=== PATIENT | male | born 1990 ===

== ENCOUNTER 2017-12-05 01:17 | Emergency (ER) | payer SELFPAY ==
[2017-12-05 03:12] VITALS: BP 129/80
[2017-12-05] MEDS ORDERED: NORCO 5/325 PO ONE (06:43)
[2017-12-05] MEDS ORDERED: NORCO 5/325 ONE (06:46)
--- NOTE | 2017-12-05 08:00 | Emergency Department Report ---
ED ENT HPI - General Chief complaint: Dental/Oral Stated complaint: TOOTHACHE Time Seen by Provider: 12/05/17 07:31 Source: patient, family Mode of arrival: Ambulatory Limitations: No Limitations - History of Present Illness Initial comments: This is a 27-year-old male patient here today complaining of toothache upper and lower left tooth. He suggested going on for 2-3 days. Denies any fever or chills. Denies any neck pain or stiffness. Denies any drooling, sore throats, headache, shortness of breath or chest pain. He said he took ibuprofen but it didn't help. Pain is 10 out of 10 achy and worse with eating no alleviating factors. He's had several incident of toothache and said that he doesn't have access to dentists and he does not have any dentists. MD complaint: tooth pain Onset/Timin -: days(s) Location: tooth # (10,19) 1 - Tooth #10 with fracture and decay 2 - Tooth #19 with fracture and decay and dental tenderness. Mild gingivitiscellulitis noticed. Severity: severe Severity scale (0 -10): 10 Quality: aching Consistency: constant Improves with: none Worsens with: eating Context- Dental: history of dental caries, poor dental care Associated Symptoms: toothache. denies: fever, cough, gum swelling, pain with swallowing, sore throat, tinnitus, hearing loss, discharge from ear, rhinorrhea - Related Data Previous Rx's Medication Instructions Recorded Last Taken Type Acetaminophen/Codeine [Tylenol 1 tab PO Q6H PRN #12 tab 12/05/17 Unknown Rx /Codeine # 3 tab] Ibuprofen [Motrin] 800 mg PO Q8HR PRN #15 tablet 12/05/17 Unknown Rx Penicillin V Potassium 500 mg PO Q8H 10 Days #30 tablet 12/05/17 Unknown Rx Allergies Allergy/AdvReac Type Severity Reaction Status Date / Time No Known Allergies Allergy Verified 12/05/17 06:49 ED Dental HPI - General Chief complaint: Dental/Oral Stated complaint: TOOTHACHE Time Seen by Provider: 12/05/17 07:31 Source: patient Mode of arrival: Ambulatory Limitations: No Limitations - Related Data Previous Rx's Medication Instructions Recorded Last Taken Type Acetaminophen/Codeine [Tylenol 1 tab PO Q6H PRN #12 tab 12/05/17 Unknown Rx /Codeine # 3 tab] Ibuprofen [Motrin] 800 mg PO Q8HR PRN #15 tablet 12/05/17 Unknown Rx Penicillin V Potassium 500 mg PO Q8H 10 Days #30 tablet 12/05/17 Unknown Rx Allergies Allergy/AdvReac Type Severity Reaction Status Date / Time No Known Allergies Allergy Verified 12/05/17 06:49 ED Review of Systems ROS: Stated complaint: TOOTHACHE Other details as noted in HPI Constitutional: denies: chills, fever Eyes: denies: eye pain, eye discharge ENT: dental pain. denies: ear pain, throat pain, congestion Respiratory: denies: cough, shortness of breath, SOB with exertion, SOB at rest , stridor, wheezing Cardiovascular: denies: chest pain, palpitations Gastrointestinal: denies: nausea, vomiting Musculoskeletal: denies: back pain, arthralgia Skin: denies: rash, lesions Neurological: denies: headache ED Past Medical Hx - Past Medical History Previous Medical History?: No - Surgical History Past Surgical History?: No - Family History Family history: no significant - Social History Smoking Status: Current Every Day Smoker Substance Use Type: None - Medications Home Medications: Home Medications Medication Instructions Recorded Confirmed Last Taken Type Acetaminophen/Codeine [Tylenol 1 tab PO Q6H PRN #12 tab 12/05/17 Unknown Rx /Codeine # 3 tab] Ibuprofen [Motrin] 800 mg PO Q8HR PRN #15 tablet 12/05/17 Unknown Rx Penicillin V Potassium 500 mg PO Q8H 10 Days #30 tablet 12/05/17 Unknown Rx ED Physical Exam - General Limitations: No Limitations General appearance: alert, in no apparent distress - Head Head exam: Present: atraumatic, normocephalic, normal inspection - Eye Eye exam: Present: normal appearance, PERRL, EOMI Pupils: Present: normal accommodation - ENT ENT exam: Present: normal orophraynx, mucous membranes moist, TM's normal bilaterally, normal external ear exam - Expanded ENT Exam Expanded Mouth exam: Present: normal external inspection Teeth exam: Present: dental caries, fractured tooth # (tooth #10 and 19), dental tenderness # (2 #10 and 19), gingival enlargement. Absent: normal inspection 1 - Fractured (tooth #10 minimal fracture, positive dental caries and dental tenderness), Dental Tenderness (2 #10), Other (patient with gingivitis) 2 - Fractured (minimal fracture #19), Dental Tenderness (2 #19), Other ( gingivitis) Throat exam: Positive: normal inspection - Neck Neck exam: Present: normal inspection, other (C-spine tenderness). Absent: tenderness, meningismus, full ROM, lymphadenopathy - Respiratory Respiratory exam: Present: normal lung sounds bilaterally. Absent: respiratory distress, chest wall tenderness - Cardiovascular Cardiovascular Exam: Present: regular rate, normal rhythm, normal heart sounds. Absent: systolic murmur, diastolic murmur - Extremities Exam Extremities exam: Present: normal inspection, full ROM, normal capillary refill , other (no clubbing, cyanosis or edema. +2 pulses to all extremities and no neurovascular compromise). Absent: tenderness, pedal edema, calf tenderness - Neurological Exam Neurological exam: Present: alert, oriented X3, normal gait - Psychiatric Psychiatric exam: Present: normal affect, normal mood - Skin Skin exam: Present: warm, dry, intact, normal color. Absent: rash ED Course Vital Signs 12/05/17 12/05/17 02:45 04:06 Temperature 97.8 F 97.8 F Pulse Rate 78 72 Respiratory 18 20 Rate Blood Pressure 129/80 129/80 O2 Sat by Pulse 100 100 Oximetry - Reevaluation(s) Reevaluation #1: 12/05/17 08:56 Patient given Chalmers 5/325 one tablet by mouth at 644 this morning and which helped his pain but he requested Motrin so he was given Motrin 800 mg by mouth which helped his pain. ED Medical Decision Making - Medical Decision Making ED course: This is a 27-year-old male here reporting that he has been having toothache over the last 3 days to his left upper and lower tooth and that he needs to be seen. He does not have any access to medical care. I saw and examined patient and she was found to have dental tenderness around tooth #10 and 19. Patient also found to have widespread gingivitis and minimal fracture to tooth #10 and 19. No pulp exposure noted. Pain controlled with medication. I discussed treatment plan, diagnosis with patient and he voiced understanding. A/P 1: Toothache-tenderness around tooth tendon 19 without any abscess or cellulitis. Patient given Chalmers 5/325 one tablet and then Motrin 800 mg by mouth and emergency room which relieved this pain. He will be discharged home on Tylenol 3 and Motrin. 2: Dental caries-referral to [facility] in to clinic 3:Gingivitis -Will be discharged home on penicillin V. 4: Tooth fracture #10 and 19-patient referred to dentist Patient given prescription for Motrin, Tylenol 3 and penicillin V Educated on oral care to include flossing and teeth cleaning and twice yearly, regular rate and rhythm with a serrated mouthwash. Educated on medication, diagnosis, follow-up with dentist and treatment plan. Educated on effects of poor gums and gingivitis can have on her body as a whole Patient discharged home in stable condition, vital signs are stable and febrile .it is controlled and is feeling better .patient encouraged to call [facility] dental clinic today to schedule an appointment and that it usually takes about 5 days from start an antibiotic for them to do any procedure. He voiced understanding discharge instruction and treatment plan and I told him if his condition worsens before he goes to the dentist he can return to the emergency room. - Differential Diagnosis tooth abscess, fractured tooth, toothache, gingivitis, Critical care attestation.: If time is entered above; I have spent that time in minutes in the direct care of this critically ill patient, excluding procedure time. ED Disposition Clinical Impression: Toothache, Dental caries, Gingivitis Fracture, tooth Qualifiers: Encounter type: initial encounter Fracture type: closed Qualified Code(s): S02.5XXA - Fracture of tooth (traumatic), initial encounter for closed fracture Disposition: TO HOME OR SELFCARE Is pt being admited?: No Does the pt Need Aspirin: No Condition: Stable Instructions: Gingivitis (ED), Dental Caries (ED), Toothache (ED) Additional Instructions: Please take Tylenol No. [address] operate heavy machinery while taking this medication because it causes drowsiness. Take for severe pain Take Motrin as prescribed for mild to moderate pain Take penicillin V antibiotic for dental caries and fractured tooth and gingivitis. This medication is free at [employer] Follow up with [facility] dental clinic call today to schedule an appointment. Return to the emergency room. Condition worsens prior to seeing the dentist. Prescriptions: Acetaminophen/Codeine [Tylenol /Codeine # 3 tab] 1 tab PO Q6H PRN #12 tab PRN Reason: severe pain Ibuprofen [Motrin] 800 mg PO Q8HR PRN #15 tablet PRN Reason: mild to moderate pain Penicillin V Potassium 500 mg PO Q8H 10 Days #30 tablet Referrals: [facility] [Outside] - 12/08/17 Forms: Work/School Release Form(ED), Accompanied Note
[2017-12-05] MEDS ORDERED: MOTRIN PO ONE (08:47)
== END 2017-12-05 09:21 | disposition home or self-care (01) ==
LOC: ED 01:17
DX: S02.5XXA Fracture of tooth (traumatic), initial encounter for closed fracture (principal); K05.10 Chronic gingivitis, plaque induced; K02.9 Dental caries, unspecified; F17.200 Nicotine dependence, unspecified, uncomplicated; X58.XXXA Exposure to other specified factors, initial encounter; Y93.89 Activity, other specified; Y92.89 Other specified places as the place of occurrence of the external cause; Y99.8 Other external cause status
CPT/HCPCS: 99282